=== PATIENT | male | born 1975 | race Hispanic/Latino ===

== ENCOUNTER 2017-09-17 10:50 | Emergency (ER) | payer SELFPAY ==
[2017-09-17] MEDS ORDERED: Lidocaine 1% w/Epinephrine 1:100K 20 ML VIAL ONE (12:17)
[2017-09-17] MEDS ORDERED: Adacel (T-DAP) 0.5 ML VIAL ONE (12:17)
== END 2017-09-17 13:04 | disposition home or self-care (01) ==
LOC: ERS 10:50
DX: L02.412 Cutaneous abscess of left axilla (principal)
CPT/HCPCS: 10060; 90715; J2001

== ENCOUNTER 2017-11-11 16:36 | Emergency (ER) | payer SELFPAY | END 2017-11-11 19:02 | disposition home or self-care (01) | LOC: ERS 16:36 | DX: M79.662 Pain in left lower leg (principal) | CPT/HCPCS: 99283 ==

== ENCOUNTER 2018-11-21 17:51 | Emergency (ER) | payer SELFPAY ==
[2018-11-21] MEDS ORDERED: Ketorolac Tromethamine 30 MG/ML VIAL ONE ×2 (19:02→19:06)
== END 2018-11-21 19:15 | disposition home or self-care (01) ==
LOC: ERS 17:51
DX: K64.5 Perianal venous thrombosis (principal)
CPT/HCPCS: 96372; J1885